=== PATIENT | female | born 1995 | race Caucasian/White ===

== ENCOUNTER 2017-01-13 12:03 | Inpatient (IN) | payer MEDICAID, OTHER ==
[~2017-01-13] VITALS: Ht 160 cm; Wt 90.9 kg
[~2017-01-13 12:03] MED LIST: UNKNOWN INHALER
[2017-01-13] MEDS: OXYTOCIN 30U/ 0.9% NaCL 500ML 500 ML IV SCH ×2 (14:49→16:59)
[2017-01-13] MEDS ORDERED: LACTATED RINGERS 1,000 ML IVBOLUS ONE (15:00)
[2017-01-13] MEDS ORDERED: METOCLOPRAMIDE 5 MG/ML, 2ML IV ONE (15:00)
[2017-01-13] MEDS ORDERED: SODIUM CITRATE/CITRIC ACID 30 ML UDC PO ONE (15:00)
[2017-01-13] MEDS: LACTATED RINGERS 1,000 ML IV SCH ×3 (15:26→22:49)
[2017-01-13] MEDS ORDERED: PREN1TAB60 PO (15:32)
[2017-01-13] MEDS ORDERED: NEWBORN KIT ONE (15:43)
[2017-01-13] MEDS ORDERED: OXYTOCIN 30U/ 0.9% NaCL 500ML 500 ML ONE (15:44)
[2017-01-13] MEDS ORDERED: SODIUM CITRATE/CITRIC ACID 30 ML UDC ONE (16:56)
[2017-01-13] MEDS ORDERED: METOCLOPRAMIDE 5 MG/ML, 2ML ONE ×2 (16:56→17:07)
[2017-01-13] MEDS ORDERED: LACTATED RINGERS 1,000 ML IV SCH (16:57)
[2017-01-13] MEDS ORDERED: OXYTOCIN 30U/ 0.9% NaCL 500ML 500 ML IV SCH (16:57)
[2017-01-13] MEDS ORDERED: IBUPROFEN 600 MG TABLET PO PRN (17:00)
[2017-01-13] MEDS ORDERED: DIPH,PERTUSS(ACELL),TET VAC/PF NC IM-VACC PRN (17:00)
[2017-01-13] MEDS ORDERED: OXYcodone IR 5MG TABLET PO PRN ×2 (17:00)
[2017-01-13] MEDS ORDERED: ONDANSETRON 2MG/ML, 2ML IV PRN ×2 (17:00)
[2017-01-13] MEDS ORDERED: MISOPROSTOL 200 MCG TABLET PR PRN ×2 (17:00)
[2017-01-13] MEDS ORDERED: KETOROLAC 30 MG/1 ML IV SCH ×2 (17:00)
[2017-01-13] MEDS ORDERED: RHOGAM FROM BLOOD BANK 1 NOTE EA IM/IV ONE (17:00)
[2017-01-13] MEDS ORDERED: DOCUSATE 100 MG CAPSULE PO PRN (17:00)
[2017-01-13] MEDS ORDERED: MEPERIDINE/PF 50 MG/ML IM PRN ×2 (17:00)
[2017-01-13] MEDS ORDERED: HYDROcodone/APAP 5/325 TABLET PO PRN (17:00)
[2017-01-13] MEDS ORDERED: MEASLES,MUMPS&RUBELLA VACC/PF 0.5 ML SQ-VACC PRN (17:00)
[2017-01-13] MEDS ORDERED: KETOROLAC 30 MG/1 ML ONE (17:07)
[2017-01-13] MEDS ORDERED: OXYTOCIN 10 UNITS/ML, 1ML ONE (17:07)
[2017-01-13] MEDS ORDERED: CEFAZOLIN 1,000 MG ONE (17:07)
[2017-01-13] MEDS ORDERED: HYDROmorphone 2MG TABLET ONE (19:28)
[2017-01-13] MEDS: HYDROmorphone 2MG TABLET PO PRN ×2 (19:29→22:31)
[2017-01-13 20:19] VITALS: BP 140/93
[2017-01-13] MEDS: KETOROLAC 30 MG/1 ML IV SCH (23:43)
[2017-01-14] VITALS: BP 130/89
[2017-01-14] MEDS: OXYTOCIN 30U/ 0.9% NaCL 500ML 500 ML IV SCH ×2 (00:49→02:59)
[2017-01-14] MEDS: LACTATED RINGERS 1,000 ML IV SCH ×3 (00:59→08:59)
[2017-01-14 04:18] VITALS: BP 120/76
[2017-01-14] MEDS: HYDROmorphone 2MG TABLET PO PRN ×5 (04:18→18:36)
[2017-01-14] MEDS: KETOROLAC 30 MG/1 ML IV SCH ×3 (05:28→18:00)
[2017-01-14 07:15] VITALS: BP 103/65
[2017-01-14] MEDS: FERROUS GLUCONATE 324 MG TABLET PO SCH ×2 (08:28→12:18)
[2017-01-14] MEDS: PRENATAL VIT/IRON/FA 1 EACH TABLET PO SCH (09:00)
[2017-01-14] MEDS: DOCUSATE 100 MG CAPSULE PO PRN ×2 (18:32→21:51)
[2017-01-14 20:00] VITALS: BP 120/73
[2017-01-14] MEDS: HYDROmorphone 4MG TABLET PO PRN (21:53)
[2017-01-15] MEDS: HYDROmorphone 4MG TABLET PO PRN ×3 (04:22→16:57)
[2017-01-15 06:45] VITALS: BP 120/82
[2017-01-15] MEDS: IBUPROFEN 600 MG TABLET PO PRN ×3 (08:00→21:21)
[2017-01-15] MEDS: DOCUSATE 100 MG CAPSULE PO PRN ×2 (08:00→21:21)
[2017-01-15] MEDS: PRENATAL VIT/IRON/FA 1 EACH TABLET PO SCH (08:01)
[2017-01-15] MEDS ORDERED: HYDROmorphone 2MG TABLET ONE ×2 (12:49→16:55)
[2017-01-15] MEDS: HYDROmorphone 2MG TABLET PO PRN ×2 (12:50→21:22)
[2017-01-15 18:55] VITALS: BP 125/84
[2017-01-16] MEDS: IBUPROFEN 600 MG TABLET PO PRN ×2 (03:40→09:45)
[2017-01-16] MEDS: HYDROmorphone 2MG TABLET PO PRN ×3 (03:40→13:07)
[2017-01-16] MEDS ORDERED: POLYETHYLENE GLYCOL 17 GM PACKET NG ONE (09:00)
[2017-01-16] MEDS: PRENATAL VIT/IRON/FA 1 EACH TABLET PO SCH (09:45)
[2017-01-16] MEDS: DOCUSATE 100 MG CAPSULE PO PRN (09:45)
[2017-01-16] MEDS: FERROUS GLUCONATE 324 MG TABLET PO SCH (09:46)
[2017-01-16 09:55] VITALS: BP 118/80
[2017-01-16] MEDS ORDERED: FERR324T5 PO (14:03)
[2017-01-16] MEDS ORDERED: IBUP800T PO (14:03)
[2017-01-16] MEDS ORDERED: HYDR2TAB13 PO (14:05)
[2017-01-16] MEDS ORDERED: DOCU-30 PO (14:05)
== END 2017-01-16 15:31 | disposition home or self-care (01) | DRG 765 ==
LOC: LDIP 14:28 → 2NW 20:03
PROVIDERS: ADMIT Specialist; ATTEND Specialist
PROC: 10D00Z1 Extraction of Products of Conception, Low, Open Approach (ICD-10-PCS; principal; 2017-01-13)
DX: O32.8XX0 Maternal care for other malpresentation of fetus, not applicable or unspecified (principal); D62 Acute posthemorrhagic anemia; Z37.0 Single live birth; Z3A.39 39 weeks gestation of pregnancy; O99.52 Diseases of the respiratory system complicating childbirth; J45.909 Unspecified asthma, uncomplicated; O90.81 Anemia of the puerperium; Z23 Encounter for immunization
CPT/HCPCS: 36415; 85025; 86850; 86900; J0690; J1885; J2590; J2765; J7120

== ENCOUNTER 2018-03-10 15:27 | Outpatient (CLI) | payer MEDICAID ==
[~2018-03-10] VITALS: Ht 160 cm; Wt 84.5 kg
[~2018-03-10 15:27] MED LIST changes: +DOCU-131 PO; +FERR324T5 PO; +HYDR2TAB29 PO; +IBUP-1223 PO; +PREN1TAB60 PO
[2018-03-10 15:37] VITALS: BP 110/66
[2018-03-10 16:31] LABS: MICROSCOPIC INDICATED
[2018-03-10 16:56] LABS: BASOPHILS # (AUTO) 0.02 x10^3/uL (0-0.1); BASOPHILS % (AUTO) 0 % (0-1); EOSINOPHILS # (AUTO) 0.08 x10^3/uL (0-0.4); EOSINOPHILS % (AUTO) 1 % (1-7); LYMPHOCYTES # (AUTO) 1.92 x10^3/uL (1-3.4); LYMPHOCYTES % (AUTO) 18 % (22-44); MD NO; MEAN CORPUSCULAR HEMOGLOBIN 29.4 pg (27.0-34.8); MEAN CORPUSCULAR HGB CONC 33.9 g/dL (32.4-35.8); MEAN CORPUSCULAR VOLUME 86.8 fL (80-100); MEAN PLATELET VOLUME 6.9 fL (7.4-10.4); MONOCYTES # (AUTO) 0.73 x10^3/uL (0.2-0.8); MONOCYTES % (AUTO) 7 % (2-9); NEUTROPHILS # (AUTO) 8.22 x10^3/uL (1.8-6.8); NEUTROPHILS % (AUTO) 75 % (42-75); PLATELET COUNT 246 x10^3/uL (130-400); RED BLOOD COUNT 3.76 x10^6/uL (3.82-5.3); RED CELL DISTRIBUTION WIDTH 13.3 % (9.6-15.2)
[2018-03-10 17:02] LABS: ALANINE AMINOTRANSFERASE 12 U/L (12-78); ALBUMIN 2.7 g/dL (3.4-5.0); ANION GAP 6 mmol/L (5-15); CALCIUM 8.6 mg/dL (8.5-10.1); CHLORIDE 109 mmol/L (98-107); CREATININE 0.38 mg/dL (0.55-1.02)
[2018-03-10 17:04] LABS: ALKALINE PHOSPHATASE 48 U/L (45-117); BILIRUBIN,TOTAL 0.3 mg/dL (0.2-1.0); TOTAL PROTEIN 6.5 g/dL (6.4-8.2)
== END 2018-03-10 19:15 | disposition home or self-care (01) ==
LOC: LDOP 15:27
PROVIDERS: ATTEND Obstetrics & Gynecology
DX: O26.892 Other specified pregnancy related conditions, second trimester (principal); M54.9 Dorsalgia, unspecified; R10.9 Unspecified abdominal pain; Z3A.23 23 weeks gestation of pregnancy
CPT/HCPCS: 36415; 59025; 76770; 80053; 81001; 85025; 87086; 99201; G0463

== ENCOUNTER 2020-06-06 21:15 | Outpatient (CLI) | payer MEDICAID, OTHER ==
[~2020-06-06] VITALS: Ht 160 cm; Wt 95.0 kg
[2020-06-06 21:30] VITALS: BP 121/73
[2020-06-06 22:25] LABS: MICROSCOPIC INDICATED
[2020-06-06] MEDS ORDERED: NITROFURANTOIN (MACROBID) 100 MG CAPSULE ONE (23:25)
== END 2020-06-06 23:37 | disposition home or self-care (01) ==
LOC: LDOP 21:15
PROVIDERS: ATTEND Obstetrics & Gynecology
DX: O98.813 Other maternal infectious and parasitic diseases complicating pregnancy, third trimester (principal); Z3A.35 35 weeks gestation of pregnancy
CPT/HCPCS: 59025; 81001; 87081; 87086

== ENCOUNTER 2020-06-11 09:52 | Outpatient (CLI) | payer OTHER ==
[~2020-06-11] VITALS: Ht 160 cm; Wt 96.4 kg
[2020-06-11 10:17] VITALS: BP 119/68
== END 2020-06-11 11:00 | disposition home or self-care (01) ==
LOC: LDOP 09:52
PROVIDERS: ATTEND Obstetrics & Gynecology
DX: O26.893 Other specified pregnancy related conditions, third trimester (principal); R10.32 Left lower quadrant pain; Z3A.36 36 weeks gestation of pregnancy
CPT/HCPCS: 59025

== ENCOUNTER → 2020-06-27 | Outpatient (CLI) | payer OTHER | END | disposition home or self-care (01) | LOC: STAR 13:48 | PROVIDERS: ATTEND Obstetrics & Gynecology | DX: Z01.812 Encounter for preprocedural laboratory examination (principal); Z20.828 Contact with and (suspected) exposure to other viral communicable diseases | CPT/HCPCS: 36415; 87635 ==

== ENCOUNTER 2020-07-02 05:09 | Inpatient (IN) | payer MEDICAID, OTHER ==
[~2020-07-02] VITALS: Ht 160 cm; Wt 97.7 kg
[2020-07-02] MEDS ORDERED: SODIUM CITRATE/CITRIC ACID 30 ML UDC PO ONE (10:30)
[2020-07-02] MEDS ORDERED: LACTATED RINGERS 1,000 ML IV SCH ×2 (10:30→13:00)
[2020-07-02] MEDS ORDERED: METOCLOPRAMIDE 5 MG/ML, 2ML IV ONE (10:30)
[2020-07-02] MEDS ORDERED: LACTATED RINGERS 1,000 ML IVBOLUS ONE (10:30)
[2020-07-02] MEDS ORDERED: NEWBORN KIT ONE (10:39)
[2020-07-02] MEDS ORDERED: METOCLOPRAMIDE 5 MG/ML, 2ML ONE (10:39)
[2020-07-02] MEDS ORDERED: OXYTOCIN 30U/ 0.9% NaCL 500ML 500 ML ONE (10:39)
[2020-07-02 10:53] LABS: BASOPHILS % (AUTO) 0 % (0-1); EOSINOPHILS % (AUTO) 0 % (1-7); LYMPHOCYTES % (AUTO) 15 % (22-44); MEAN CORPUSCULAR HEMOGLOBIN 28.5 pg (27.0-34.8); MEAN CORPUSCULAR HGB CONC 32.9 g/dL (32.4-35.8); MEAN PLATELET VOLUME 7.5 fL (7.4-10.4); MONOCYTES % (AUTO) 5 % (2-9); NEUTROPHILS % (AUTO) 79 % (42-75); PLATELET COUNT 197 x10^3/uL (130-400); RED BLOOD COUNT 4.03 x10^6/uL (3.82-5.3); RED CELL DISTRIBUTION WIDTH 14.7 % (9.6-15.2)
[2020-07-02 10:58] LABS: MD NO
[2020-07-02] MEDS ORDERED: morphine SULFATE/PF 1 MG/ML, 10ML ONE (12:25)
[2020-07-02] MEDS ORDERED: LIDOCAINE 1%, 20ML ONE (12:26)
[2020-07-02] MEDS ORDERED: DEXAMETHASONE 4 MG/ML, 1ML ONE (12:27)
[2020-07-02] MEDS ORDERED: OXYTOCIN 10 UNITS/ML, 1ML ONE (12:27)
[2020-07-02] MEDS ORDERED: WATER-INJECTION,STERILE 10 ML IV ONE (12:27)
[2020-07-02] MEDS ORDERED: KETOROLAC 30 MG/1 ML ONE (12:27)
[2020-07-02] MEDS ORDERED: ONDANSETRON 2MG/ML, 2ML ONE (12:27)
[2020-07-02] MEDS ORDERED: CEFAZOLIN 1,000 MG ONE (12:27)
[2020-07-02] MEDS ORDERED: PHENYLEPHRINE 10 MG/ML ONE (12:39)
[2020-07-02] MEDS ORDERED: SODIUM CHLORIDE 0.9% PF 10ML ONE (12:39)
[2020-07-02] MEDS ORDERED: ACETAMINOPHEN 325 MG TABLET PO PRN (13:00)
[2020-07-02] MEDS ORDERED: OXYcodone/APAP 5/325MG TABLET PO PRN ×2 (13:00)
[2020-07-02] MEDS ORDERED: MISOPROSTOL 200 MCG TABLET PR PRN (13:00)
[2020-07-02] MEDS ORDERED: RHOGAM FROM BLOOD BANK 1 NOTE EA IM/IV ONE (13:00)
[2020-07-02] MEDS ORDERED: SIMETHICONE 80 MG CHEW TAB PO PRN (13:00)
[2020-07-02] MEDS ORDERED: METOCLOPRAMIDE 5 MG/ML, 2ML IV PRN (13:00)
[2020-07-02] MEDS ORDERED: MORPHINE SULFATE 4 MG/ML, 1ML IVPush PRN (13:00)
[2020-07-02] MEDS ORDERED: CALCIUM CARBONATE 500 MG TAB.CHEW PO PRN (13:00)
[2020-07-02] MEDS ORDERED: DIPH,PERTUSS(ACELL),TET VAC/PF NC IM-VACC PRN (13:00)
[2020-07-02] MEDS ORDERED: morphine SULFATE 10 MG/ML, 1ML IM PRN (13:00)
[2020-07-02] MEDS ORDERED: MEASLES,MUMPS&RUBELLA VACC/PF 0.5 ML SQ-VACC PRN (13:00)
[2020-07-02] MEDS ORDERED: ONDANSETRON 2MG/ML, 2ML IV PRN (13:00)
[2020-07-02] MEDS: KETOROLAC 30 MG/1 ML IV SCH ×2 (13:00→18:54)
[2020-07-02] MEDS: LACTATED RINGERS 1,000 ML IV SCH ×2 (14:02→23:00)
[2020-07-02] MEDS: OXYTOCIN 30U/ 0.9% NaCL 500ML 500 ML IV SCH ×2 (14:02→20:13)
[2020-07-02 15:45] VITALS: BP 104/70
[2020-07-02 19:25] VITALS: BP 101/68
[2020-07-02 20:10] VITALS: BP 114/78
[2020-07-02 20:56] LABS: BASOPHILS % (AUTO) 0 % (0-1); EOSINOPHILS % (AUTO) 0 % (1-7); LYMPHOCYTES % (AUTO) 6 % (22-44); MEAN CORPUSCULAR HEMOGLOBIN 28.3 pg (27.0-34.8); MEAN CORPUSCULAR HGB CONC 32.8 g/dL (32.4-35.8); MEAN PLATELET VOLUME 7.4 fL (7.4-10.4); MONOCYTES % (AUTO) 4 % (2-9); NEUTROPHILS % (AUTO) 90 % (42-75); PLATELET COUNT 197 x10^3/uL (130-400); RED BLOOD COUNT 3.86 x10^6/uL (3.82-5.3); RED CELL DISTRIBUTION WIDTH 14.9 % (9.6-15.2)
[2020-07-02 21:36] LABS: MD SCAN
[2020-07-02 23:30] VITALS: BP 110/74
[2020-07-03] MEDS: KETOROLAC 30 MG/1 ML IV SCH ×2 (01:01→07:00)
[2020-07-03 03:15] VITALS: BP 101/68
[2020-07-03 05:22] LABS: BASOPHILS % (AUTO) 0 % (0-1); EOSINOPHILS % (AUTO) 0 % (1-7); LYMPHOCYTES % (AUTO) 18 % (22-44); MEAN CORPUSCULAR HEMOGLOBIN 28.4 pg (27.0-34.8); MEAN PLATELET VOLUME 7.7 fL (7.4-10.4); MONOCYTES % (AUTO) 8 % (2-9); NEUTROPHILS % (AUTO) 74 % (42-75); PLATELET COUNT 184 x10^3/uL (130-400); RED BLOOD COUNT 3.25 x10^6/uL (3.82-5.3); RED CELL DISTRIBUTION WIDTH 14.9 % (9.6-15.2)
[2020-07-03 05:37] LABS: MD NO
[2020-07-03] MEDS: IBUPROFEN 600 MG TABLET PO PRN ×3 (07:02→17:57)
[2020-07-03 07:30] VITALS: BP 100/68
[2020-07-03] MEDS: DOCUSATE 100 MG CAPSULE PO PRN (08:19)
[2020-07-03] MEDS: PRENATAL VIT/IRON/FA 1 EACH TABLET PO SCH (08:19)
[2020-07-03 12:30] VITALS: BP 92/60
[2020-07-03 19:45] VITALS: BP 98/65
[2020-07-04] MEDS: DOCUSATE 100 MG CAPSULE PO PRN ×2 (00:10→11:47)
[2020-07-04] MEDS: IBUPROFEN 600 MG TABLET PO PRN ×3 (00:10→11:46)
[2020-07-04] MEDS: ACETAMINOPHEN 325 MG TABLET PO PRN ×3 (00:11→11:46)
[2020-07-04 08:45] VITALS: BP 121/80
[2020-07-04] MEDS: PRENATAL VIT/IRON/FA 1 EACH TABLET PO SCH (11:47)
[2020-07-04] MEDS ORDERED: OXYC-302 PO (13:31)
[2020-07-04] MEDS ORDERED: IBUP-1222 PO (13:31)
== END 2020-07-04 14:05 | disposition home or self-care (01) | DRG 785 ==
LOC: LDIP 10:10 → 2NW 15:15
PROVIDERS: ADMIT Obstetrics & Gynecology; ATTEND Obstetrics & Gynecology
PROC: 10D00Z1 Extraction of Products of Conception, Low, Open Approach (ICD-10-PCS; principal; 2020-07-02)
PROC: 0UB70ZZ Excision of Bilateral Fallopian Tubes, Open Approach (ICD-10-PCS; 2020-07-02)
DX: O34.211 Maternal care for low transverse scar from previous cesarean delivery (principal); Z3A.39 39 weeks gestation of pregnancy; Z37.0 Single live birth
CPT/HCPCS: 36415; J3490; 85025; 86592; 86850; 86900; 88305; G0378; J0690; J1100; J1885; J2274; J2405; J2370; J2590; J2765; J7120